=== PATIENT | male | born 1975 | race Caucasian/White ===

== ENCOUNTER 2019-01-01 19:39 | Emergency (ER) | payer OTHER ==
[~2019-01-01] VITALS: Ht 172.7 cm; Wt 99.8 kg
[~2019-01-01 19:39] MED LIST: ALBU90OI INH; Amoxicillin500 MG PO; HYDACE5 PO; NAPR500 PO; Naprosyn500 MG PO; Norco 5-325 Ta1 EACH PO; RXTRAM50 PO; Zofran4 MG PO
[2019-01-01] MEDS ORDERED: Cleocin HCl300 MG PO (21:48)
[2019-01-01] MEDS ORDERED: KETO10 PO (21:53)
== END 2019-01-01 21:56 | disposition home or self-care (01) ==
LOC: ER 19:39
DX: K04.7 Periapical abscess without sinus (principal); L03.211 Cellulitis of face; F32.9 Major depressive disorder, single episode, unspecified; F17.210 Nicotine dependence, cigarettes, uncomplicated
CPT/HCPCS: 36415; 70486; J0696